=== PATIENT | male | born 2000 | race African-American/Black ===

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

== ENCOUNTER 2020-08-08 12:12 | Emergency (ER) | payer SELFPAY ==
[2020-08-08] MEDS ORDERED: Lidocaine 1% w/Epinephrine 1:100K 20 ML VIAL ONE ×2 (12:35→12:38)
[2020-08-08] MEDS ORDERED: Bacitracin 1 PK ONE (13:00)
== END 2020-08-08 13:05 | disposition home or self-care (01) ==
LOC: ERS 12:12
DX: S81.812A Laceration without foreign body, left lower leg, initial encounter (principal); W25.XXXA Contact with sharp glass, initial encounter
CPT/HCPCS: 12004

== ENCOUNTER 2020-08-22 13:46 | Emergency (ER) | payer SELFPAY | END 2020-08-22 14:05 | disposition home or self-care (01) | LOC: ERS 13:46 | DX: S81.812D Laceration without foreign body, left lower leg, subsequent encounter (principal) ==